=== PATIENT | female | born 1965 | race Hispanic/Latino ===

== ENCOUNTER 2016-12-07 23:09 | Observation (INO) | payer BC, OTHER ==
[2016-12-07 23:25] VITALS: BP 110/71; PULSE 58; RESP 17; TEMP 98; O2SAT 98
[2016-12-07] MEDS ORDERED: Sodium Chloride 0.9% 1,000 ML IV STA (23:28)
[2016-12-07] MEDS ORDERED: Iohexol 240 (50 ml) PO ONE (23:28)
--- NOTE | 2016-12-08 00:35 | ED PDOC ---
HPI: Abdomen Time Seen by Provider: 12/07/16 23:13 Chief Complaint (Nursing): Abdominal Pain Chief Complaint (Provider): Diarrhea, abdominal pain History Per: Patient History/Exam Limitations: no limitations Onset/Duration Of Symptoms: Days (1 week) Outside of [place] travel?: No Current Symptoms Are (Timing): Still Present Severity: Moderate Pain Scale Rating Of: 7 Location Of Pain/Discomfort: Diffuse, LUQ, LLQ Quality Of Discomfort: "Pain" Associated Symptoms: Nausea, Diarrhea. denies: Fever, Chills, Vomiting Additional History Per: Patient Additional Complaint(s): The patient is a 51yo female, past medical history of shigella enteritis, PCOS, presents to the ED with abdominal pain, associated with progressively worsening diarrhea for the past week. Patient reports 10x episodes of non-bloody, mucus like watery diarrhea as well as having significant diffuse abdominal pain, more present in her lower abdomen. pt also reports of nausea but denies any vomiting; pt also denies any fever, cough, shortness of breath, chest pain. The patient's , who is also a physician reports he had similar symptoms 1 week ago and due to him having treated with C. Diff colitis who presented with similar symptoms, he empirically treated himself with Flagyl and gave the patient 500 mg of Flagyl as well; patient reports her symptoms worsened after taking the medications. Patient reports her pain is intermittent and rates it 7/10. She denies any recent travels. The patient offers no additional medical complaints. Abnormal Vaginal Bleeding: No Past Medical History Reviewed: Historical Data, Nursing Documentation, Vital Signs Vital Signs: Last Vital Signs Temp 98.0 F 12/07/16 23:17 Pulse 58 L 12/07/16 23:17 Resp 17 12/07/16 23:17 BP 110/71 12/07/16 23:17 Pulse Ox 98 12/08/16 04:54 - Medical History PMH: Hypothyroidism - Surgical History Surgical History: No Surg Hx - Family History Family History: States: No Known Family Hx - Social History Current smoker - smoking cessation education provided: No Alcohol: Occasional Drugs: Denies - Home Medications Home Medications: Ambulatory Orders Medication Instructions Recorded Naproxen [Naprosyn Tab] 500 mg PO BID PRN #20 tab 04/08/14 Dicyclomine [Bentyl] 20 mg PO Q12 PRN #20 tab 12/08/16 Ondansetron ODT [Zofran ODT] 4 mg PO Q6 PRN #12 odt 12/08/16 - Allergies Allergies/Adverse Reactions: Allergies Allergy/AdvReac Type Severity Reaction Status Date / Time epinephrine Allergy Intermediate ANAPHYLAXIS Verified 12/07/16 23:19 Review of Systems ROS Statement: Except As Marked, All Systems Reviewed And Found Negative Gastrointestinal: Positive for: Nausea, Abdominal Pain, Diarrhea Physical Exam - Reviewed Nursing Documentation Reviewed: Yes Vital Signs Reviewed: Yes - Physical Exam Appears: Positive for: Non-toxic, No Acute Distress Head Exam: Positive for: ATRAUMATIC, NORMAL INSPECTION, NORMOCEPHALIC Skin: Positive for: Normal Color Eye Exam: Positive for: Normal appearance Neck: Positive for: Normal, Supple Cardiovascular/Chest: Positive for: Regular Rate, Rhythm Respiratory: Positive for: Normal Breath Sounds Gastrointestinal/Abdominal: Positive for: Soft, Tenderness (left lower quadrant tenderness) Back: Positive for: Normal Inspection Extremity: Positive for: Normal ROM. Negative for: Deformity, Swelling Neurologic/Psych: Positive for: Alert, Oriented. Negative for: Motor/Sensory Deficits - Laboratory Results Result Diagrams: 12/08/16 00:20 12/08/16 00:20 - ECG O2 Sat by Pulse Oximetry: 98 (RA) Pulse Ox Interpretation: Normal Medical Decision Making Medical Decision Making: Time: 2320 Impression: 51y/o presents with abdominal pain, diarrheal illness Plan: -- Labs -- CT AP -- Bentyl PO -- IV Fluids --Reassess Time: 0000 Pt to be placed under ED Obs pending CT AP. Scribe Attestation: Documented by Amanda Cunha acting as a scribe for Jay Wheatley MD Provider Scribe Attestation: All medical record entries made by the Scribe were at my direction and personally dictated by me. I have reviewed the chart and agree that the record accurately reflects my personal performance of the history, physical exam, medical decision making, and the department course for this patient. I have also personally directed, reviewed, and agree with the discharge instructions and disposition. ED OBSERVATION Date of observation admission: 12/08/16 Time of observation admission: 00:00 - Observation admission statement Patient is being placed in observation because:: Pt w/ abdominal pain, diarrhea - Goals of Observation Goals of observation are:: Pending CT AP - Progress Note Progress Note: 12/08/16 01:14 Pt resting in room, CT AP to be done at 0142. 12/08/16 02:46 Pt resting in room, vitals stable, currently pending CT read. 12/08/16 04:26 CT AP FINDINGS: Lower thorax: No acute findings. ABDOMEN: Liver: Probable mild fatty infiltration. Gallbladder and bile ducts: No calcified stones. No ductal dilation. Pancreas: No ductal dilation. No mass. Spleen: No splenomegaly. Adrenals: No mass. Kidneys and ureters: Minimal scarring LEFT kidney. Too small to characterize lesion within LEFT kidney. No hydronephrosis. Stomach and bowel: Segmental areas of underdistention of colon. No definite mural thickening. No obstruction. Appendix: Normal caliber. No inflammation. PELVIS: Bladder: Unremarkable. Reproductive: 2.4 x 1.9 x 2.1 cm hypodense lesion within RIGHT ovary. ABDOMEN and PELVIS: Intraperitoneal space: No significant fluid collection. No free air. Bones/joints: No acute fracture. Soft tissues: Tiny umbilical hernia containing fat. Vasculature: Few rounded calcifications within pelvis, likely phleboliths. No aneurysm. Lymph nodes: No pathologically enlarged lymph nodes. IMPRESSION: 1. Probable RIGHT ovarian cyst. Consider ultrasound. 2. Incidental/non-acute findings are described above. 12/08/16 04:53 Patient reports improvement in her symptoms. She states she has a scheduled follow up with GI specialist and is stable for d/c home. Diagnosis: Gatroenteritis, ovarian cyst Disposition - Clinical Impression Clinical Impression: Gastroenteritis - Disposition Disposition: Routine/Home Disposition Time: 00:00 Condition: STABLE
[2016-12-08 00:54] LABS: BASO % 0.4 % (0.0-2.0); EOS # 0.1 K/uL (0.0-0.7); EOS % 1.3 % (0.0-4.0); HEMATOCRIT 40.3 % (34.0-47.0); LYMPH # 2.5 K/uL (1.0-4.3); MEAN CELL VOLUME 95.2 fl (81.0-99.0); MEAN CORPUSCULAR HEMOGLOBIN 31.9 pg (27.0-31.0); MEAN CORPUSCULAR HGB CONC 33.5 g/dL (33.0-37.0); MEAN PLATELET VOLUME 8.7 fl (7.2-11.7); MONO # 0.6 K/uL (0.0-0.8); MONO % 8.1 % (0.0-10.0); NEUT # 4.4 K/uL (1.8-7.0); NEUT % 57.2 % (50.0-75.0); NRBC % 0.1 % (0.0-0.0); RED CELL DISTRIBUTION WIDTH 13.1 % (11.5-14.5); WHITE BLOOD COUNT 7.6 K/uL (4.8-10.8)
[2016-12-08 01:06] LABS: ALB/GLOB RATIO 1.6 (1.0-2.1); ALKALINE PHOSPHATASE 41 U/L (38-126); ALT/SGPT 38 U/L (9-52); AST/SGOT 30 U/L (14-36); BLOOD UREA NITROGEN 15 mg/dl (7-17); CALCIUM 8.9 mg/dL (8.4-10.2); CARBON DIOXIDE 22 mmol/L (22-30); CHLORIDE 104 mmol/L (98-107); GFR AFRICAN-AMERICAN > 60; GLUCOSE,RANDOM 97 mg/dL (65-105); LIPASE 126 U/L (23-300); POTASSIUM 3.7 MMOL/L (3.6-5.0); SODIUM 136 mmol/l (132-148); TOTAL PROTEIN 6.5 G/DL (6.3-8.2)
[2016-12-08] MEDS ORDERED: Sodium Chloride 0.9% 50 ML IV ONE (03:04)
[2016-12-08] MEDS ORDERED: Iohexol 300 100 ML IJ ONE (03:04)
--- NOTE | 2016-12-08 04:26 | CT ---
EXAM: CT Abdomen and Pelvis With Intravenous Contrast CLINICAL HISTORY: 51 years old, female; Pain; Abdominal pain; Generalized; Additional info: Abd pain TECHNIQUE: Axial computed tomography images of the abdomen and pelvis with intravenous contrast. All CT scans at this facility use one or more dose reduction techniques, viz.: automated exposure control; ma/kV adjustment per patient size (including targeted exams where dose is matched to indication; i.e. head); or iterative reconstruction technique. Coronal and sagittal reformatted images were created and reviewed. CONTRAST: 99 mL of [id number] administered intravenously. COMPARISON: No relevant prior studies available. FINDINGS: Lower thorax: No acute findings. ABDOMEN: Liver: Probable mild fatty infiltration. Gallbladder and bile ducts: No calcified stones. No ductal dilation. Pancreas: No ductal dilation. No mass. Spleen: No splenomegaly. Adrenals: No mass. Kidneys and ureters: Minimal scarring LEFT kidney. Too small to characterize lesion within LEFT kidney. No hydronephrosis. Stomach and bowel: Segmental areas of underdistention of colon. No definite mural thickening. No obstruction. Appendix: Normal caliber. No inflammation. PELVIS: Bladder: Unremarkable. Reproductive: 2.4 x 1.9 x 2.1 cm hypodense lesion within RIGHT ovary. ABDOMEN and PELVIS: Intraperitoneal space: No significant fluid collection. No free air. Bones/joints: No acute fracture. Soft tissues: Tiny umbilical hernia containing fat. Vasculature: Few rounded calcifications within pelvis, likely phleboliths. No aneurysm. Lymph nodes: No pathologically enlarged lymph nodes. IMPRESSION: 1. Probable RIGHT ovarian cyst. Consider ultrasound. 2. Incidental/non-acute findings are described above.
--- NOTE | 2016-12-08 07:48 | CARD ---
APPROVED REPORT EKG Measurement Heart [id number] <Conclusion> Sinus bradycardia with 1st degree AV block Otherwise normal ECG
== END 2016-12-08 05:05 | disposition home or self-care (01) ==
LOC: H.ER 23:09 → H.EROBSV 12-08
PROVIDERS: ADMIT Emergency Medicine; ATTEND Emergency Medicine
DX: K52.9 Noninfective gastroenteritis and colitis, unspecified (principal); E03.9 Hypothyroidism, unspecified; E28.2 Polycystic ovarian syndrome
CPT/HCPCS: 74177; 80053; 81025; 83690; 85025; 87045; 87177; 87209; 87230; 89055; 93005; 99283; G0378; J2405; J7040; Q9966; Q9967